=== PATIENT | male | born 1985 | race Caucasian/White ===

== ENCOUNTER → 2018-04-06 | Outpatient (CLI) | payer BC | LOC: COL.RAD 07:51 | DX: R11.0 Nausea (principal) | CPT/HCPCS: A9541 ==

== ENCOUNTER → 2019-10-21 | Outpatient (CLI) | payer BC | LOC: ZCOL.LAB 15:40 | DX: Z20.828 Contact with and (suspected) exposure to other viral communicable diseases (principal) ==